=== PATIENT | female | born 1955 | race Caucasian/White ===

== ENCOUNTER 2022-08-09 20:25 | Emergency (ER) | payer MEDICARE ==
[~2022-08-09] VITALS: Ht 160 cm; Wt 75.4 kg
[2022-08-09 23:04] VITALS: BP 194/95
[2022-08-09] MEDS ORDERED: LORazepam 1 MG tablet PO ONE (23:05)
== END 2022-08-10 00:14 | disposition home or self-care (01) ==
LOC: ER 20:25
DX: F41.9 Anxiety disorder, unspecified (principal); Z88.8 Allergy status to other drugs, medicaments and biological substances; Z88.0 Allergy status to penicillin; Z91.013 Allergy to seafood
CPT/HCPCS: 93005; 99283